=== PATIENT | male | born 1945 | race Caucasian/White ===

== ENCOUNTER 2023-05-03 19:14 | Inpatient (IN) | payer MEDICARE ==
[~2023-05-03] VITALS: Ht 177.8 cm; Wt 77.0 kg
[2023-05-03 19:44] LABS: SARS-CoV-2, RNA, NAAT NEGATIVE SARS CoV-2 (NEGATIVE)
[2023-05-03 20:16] LABS: APPEARANCE,URINE CLEAR (CLEAR); BILIRUBIN,URINE NEGATIVE (NEGATIVE); COLOR,URINE YELLOW (YELLOW); GLUCOSE, URINE (UA) NEGATIVE (NEGATIVE); KETONES,URINE 60 mg/dL (NEGATIVE); LEUKOCYTE ESTERASE ,URINE NEGATIVE Leu/uL (NEGATIVE); NITRATE,URINE NEGATIVE (NEGATIVE); OCCULT BLOOD,URINE SMALL (NEGATIVE); PROTEIN,URINE 30 mg/dL (NEGATIVE); UROBILINOGEN,URINE 0.2 mg/dL (0.2-1.0)
[2023-05-03 20:17] LABS: ADD UA MICROSCOPIC YES
[2023-05-03 20:19] LABS: MUCUS,URINE RARE LPF (None Seen); SQUAMOUS EPITHELIAL CELL,UR RARE /HPF (0-2)
[2023-05-03 20:25] LABS: INFLUENZA TYPE A Negative For Type A (NEGATIVE); INFLUENZA TYPE B Negative For Type B (NEGATIVE)
[2023-05-03] MEDS ORDERED: 0.9%NACL 1000ML 2,000 ML IV ONE (22:00)
[2023-05-03 22:19] LABS: BASOPHILS # (AUTO) 0.02 K/uL (0.00-0.20); BASOPHILS % (AUTO) 0.2 % (0.0-5.0); EOSINOPHILS # (AUTO) 0.01 K/uL (0.00-0.70); EOSINOPHILS % (AUTO) 0.1 % (0.0-8.0); HEMATOCRIT 34.7 % (42-54); IMMATURE GRANULOCYTE ABSOLUTE 0.08 K/uL (0-1); LYMPHOCYTES # (AUTO) 0.7 K/uL (1.0-4.8); LYMPHOCYTES % (AUTO) 6.9 % (21.0-51.0); MEAN CORPUSCULAR HEMOGLOBIN 29.8 pg (27.0-33.0); MEAN CORPUSCULAR HGB CONC 35.2 g/dL (32.0-36.0); MEAN CORPUSCULAR VOLUME 84.6 fL (79-99); MONOCYTES # (AUTO) 0.3 K/uL (0.1-1.0); MONOCYTES % (AUTO) 2.6 % (3.0-13.0); NEUTROPHILS # (AUTO) 8.9 K/uL (1.8-7.7); NEUTROPHILS % (AUTO) 89.4 % (40.0-77.0); PLATELET COUNT (AUTO) 131 K/uL (130-400); RED CELL DISTRIBUTION WIDTH 12.5 % (11.0-15.5)
[2023-05-03 22:38] LABS: CREATININE 1.2 mg/dL (0.5-1.5)
[2023-05-03 22:45] LABS: ALBUMIN 2.3 g/dL (3.5-5.0); BILIRUBIN,TOTAL 1.1 mg/dL (0.2-1.0); TOTAL PROTEIN, SERUM 5.7 g/dL (6.0-8.3)
[2023-05-03] MEDS ORDERED: IOHEXOL 350 MG/ML 100ML INFUS..BTL IV ONE (23:00)
[2023-05-04] MEDS ORDERED: PANTOPRAZOLE 40 MG/VIAL IVP ONE (00:30)
[2023-05-04] MEDS ORDERED: ONDANSETRON 4MG INJ IV PRN (02:00)
[2023-05-04] MEDS ORDERED: MAGNESIUM 2GM PREMIX 50ML 50 ML IV PRN (02:00)
[2023-05-04] MEDS ORDERED: ACETAMINOPHEN 325 MG TAB PO PRN (02:00)
[2023-05-04] MEDS ORDERED: POTASSIUM CHLORIDE 20MEQ/100ML 100 ML IV PRN (02:00)
[2023-05-04] MEDS: 0.9%NACL 1000ML 1,000 ML IV SCH ×2 (03:52→15:20)
[2023-05-04] MEDS: PANTOPRAZOLE 40 MG/VIAL IVP SCH ×2 (08:11→20:20)
[2023-05-04 09:57] LABS: INR 1.06 (0.85-1.15); PROTHROMBIN TIME 12.3 SEC (9.6-11.6)
[2023-05-04 09:58] LABS: PARTIAL THROMBOPLASTIN TIME 31.3 SEC (26.3-35.5)
[2023-05-04 10:04] LABS: BASOPHILS # (AUTO) 0.03 K/uL (0.00-0.20); BASOPHILS % (AUTO) 0.2 % (0.0-5.0); EOSINOPHILS # (AUTO) 0.02 K/uL (0.00-0.70); EOSINOPHILS % (AUTO) 0.2 % (0.0-8.0); HEMATOCRIT 32.6 % (42-54); IMMATURE GRANULOCYTE ABSOLUTE 0.12 K/uL (0-1); LYMPHOCYTES # (AUTO) 0.6 K/uL (1.0-4.8); LYMPHOCYTES % (AUTO) 4.8 % (21.0-51.0); MEAN CORPUSCULAR HEMOGLOBIN 30.2 pg (27.0-33.0); MEAN CORPUSCULAR HGB CONC 35.9 g/dL (32.0-36.0); MEAN CORPUSCULAR VOLUME 84.2 fL (79-99); MONOCYTES # (AUTO) 0.3 K/uL (0.1-1.0); MONOCYTES % (AUTO) 2.4 % (3.0-13.0); NEUTROPHILS # (AUTO) 11.2 K/uL (1.8-7.7); NEUTROPHILS % (AUTO) 91.4 % (40.0-77.0); PLATELET COUNT (AUTO) 123 K/uL (130-400); RED BLOOD CELL COUNT(AUTO) 3.87 MIL/uL (4.50-6.20); RED CELL DISTRIBUTION WIDTH 12.7 % (11.0-15.5); WHITE BLOOD COUNT (AUTO) 12.2 K/uL (4.8-10.8)
[2023-05-04 13:18] LABS: ALBUMIN 2.1 g/dL (3.5-5.0); CREATININE 1.1 mg/dL (0.5-1.5); MAGNESIUM 1.8 mg/dL (1.80-2.40); POTASSIUM 3.8 mmol/L (3.5-5.1); TOTAL PROTEIN, SERUM 5.4 g/dL (6.0-8.3)
[2023-05-04 17:30] LABS: HEMATOCRIT 31.6 % (42-54)
[2023-05-04 20:55] VITALS: BP 145/61; PULSE 92; RESP 20
[2023-05-04 21:00] VITALS: O2SAT 97
[2023-05-05] VITALS (8 sets, daily range): BP systolic 111–131; BP diastolic 49–76; PULSE 95–112; RESP 16–22; O2SAT 97
[2023-05-05] MEDS ORDERED: HALOPERIDOL INJ 5 MG/ML VIAL IM SCH
[2023-05-05 01:51] LABS: BASOPHILS # (AUTO) 0.02 K/uL (0.00-0.20); BASOPHILS % (AUTO) 0.1 % (0.0-5.0); EOSINOPHILS # (AUTO) 0.04 K/uL (0.00-0.70); EOSINOPHILS % (AUTO) 0.3 % (0.0-8.0); IMMATURE GRANULOCYTE ABSOLUTE 0.32 K/uL (0-1); LYMPHOCYTES # (AUTO) 1.1 K/uL (1.0-4.8); LYMPHOCYTES % (AUTO) 7.7 % (21.0-51.0); MEAN CORPUSCULAR HEMOGLOBIN 30.4 pg (27.0-33.0); MEAN CORPUSCULAR HGB CONC 35.5 g/dL (32.0-36.0); MEAN CORPUSCULAR VOLUME 85.5 fL (79-99); MONOCYTES # (AUTO) 0.4 K/uL (0.1-1.0); MONOCYTES % (AUTO) 2.8 % (3.0-13.0); NEUTROPHILS # (AUTO) 11.9 K/uL (1.8-7.7); NEUTROPHILS % (AUTO) 86.8 % (40.0-77.0); PLATELET COUNT (AUTO) 120 K/uL (130-400); RED BLOOD CELL COUNT(AUTO) 3.39 MIL/uL (4.50-6.20); RED CELL DISTRIBUTION WIDTH 12.6 % (11.0-15.5); WHITE BLOOD COUNT (AUTO) 13.7 K/uL (4.8-10.8)
[2023-05-05 02:04] LABS: ALBUMIN 1.8 g/dL (3.5-5.0); BILIRUBIN,TOTAL 0.9 mg/dL (0.2-1.0); POTASSIUM 3.6 mmol/L (3.5-5.1); TOTAL PROTEIN, SERUM 4.7 g/dL (6.0-8.3)
[2023-05-05 02:59] LABS: LYMPHOCYTES % (MANUAL) 6 % (22-44); SEGMENTED NEUTROPHILS % 94 % (40-70); TOTAL CELLS COUNTED 100
[2023-05-05 03:00] LABS: MAN.DIFF COMMENT-IMPRESSION MANUAL DIFFERENTIAL; PLATELET MORPHOLOGY COMMENT SLIGHTLY DECREASED; WBC MORPHOLOGY NORMAL
[2023-05-05] MEDS ORDERED: KCL 20 MEQ ERTAB PO PRN (03:30)
[2023-05-05] MEDS ORDERED: POTASSIUM CHLORIDE 20MEQ/100ML 100 ML IV PRN (03:30)
[2023-05-05] MEDS: POTASSIUM CHLORIDE 10% ELIXIR 20 MEQ/15 ML UDCUP PO PRN ×3 (03:37→21:12)
[2023-05-05] MEDS: PANTOPRAZOLE 40 MG/VIAL IVP SCH ×2 (09:59→21:12)
[2023-05-05] MEDS: CEFTRIAXONE 1G VIAL IVPB SCH (15:02)
[2023-05-05] MEDS: 0.9%NACL 1000ML 1,000 ML IV SCH (17:57)
[2023-05-05] MEDS: ACETAMINOPHEN 325 MG TAB PO PRN (21:13)
[2023-05-06] VITALS (7 sets, daily range): BP systolic 94–123; BP diastolic 56–74; PULSE 82–97; RESP 16–22; O2SAT 94–96
[2023-05-06] MEDS: PANTOPRAZOLE 40 MG/VIAL IVP SCH ×2 (08:47→21:26)
[2023-05-06] MEDS: 0.9%NACL 1000ML 1,000 ML IV SCH ×2 (08:47→17:22)
[2023-05-06 09:04] LABS: BASOPHILS # (AUTO) 0.05 K/uL (0.00-0.20); BASOPHILS % (AUTO) 0.3 % (0.0-5.0); EOSINOPHILS # (AUTO) 0.12 K/uL (0.00-0.70); EOSINOPHILS % (AUTO) 0.7 % (0.0-8.0); HEMATOCRIT 29.5 % (42-54); IMMATURE GRANULOCYTE ABSOLUTE 0.35 K/uL (0-1); LYMPHOCYTES # (AUTO) 1.8 K/uL (1.0-4.8); LYMPHOCYTES % (AUTO) 11.1 % (21.0-51.0); MEAN CORPUSCULAR HEMOGLOBIN 30.1 pg (27.0-33.0); MEAN CORPUSCULAR HGB CONC 35.6 g/dL (32.0-36.0); MEAN CORPUSCULAR VOLUME 84.5 fL (79-99); MONOCYTES # (AUTO) 0.4 K/uL (0.1-1.0); MONOCYTES % (AUTO) 2.7 % (3.0-13.0); NEUTROPHILS # (AUTO) 13.4 K/uL (1.8-7.7); PLATELET COUNT (AUTO) 98 K/uL (130-400); RED BLOOD CELL COUNT(AUTO) 3.49 MIL/uL (4.50-6.20); RED CELL DISTRIBUTION WIDTH 13.1 % (11.0-15.5); WHITE BLOOD COUNT (AUTO) 16.2 K/uL (4.8-10.8)
[2023-05-06 09:12] LABS: POTASSIUM 3.5 mmol/L (3.5-5.1)
[2023-05-06 09:17] LABS: ALBUMIN 1.5 g/dL (3.5-5.0); BILIRUBIN,TOTAL 0.7 mg/dL (0.2-1.0); TOTAL PROTEIN, SERUM 4.6 g/dL (6.0-8.3)
[2023-05-06] MEDS: POTASSIUM CHLORIDE 10% ELIXIR 20 MEQ/15 ML UDCUP PO PRN ×2 (09:39→14:08)
[2023-05-06 10:30] LABS: BAND NEUTROPHILS % (MANUAL) 22 % (0-2); LYMPHOCYTES % (MANUAL) 8 % (22-44); MONOCYTES % (MANUAL) 2 % (2-9); SEGMENTED NEUTROPHILS % 68 % (40-70); TOTAL CELLS COUNTED 100
[2023-05-06 10:31] LABS: MAN.DIFF COMMENT-IMPRESSION MANUAL DIFFERENTIAL; PLATELET MORPHOLOGY COMMENT DECREASED; WBC MORPHOLOGY CONSISTENT W/DIFF
[2023-05-06] MEDS: CEFTRIAXONE 1G VIAL IVPB SCH (12:56)
[2023-05-07] VITALS (8 sets, daily range): BP systolic 101–122; BP diastolic 64–73; PULSE 66–96; RESP 16–20; O2SAT 95
[2023-05-07] MEDS: PANTOPRAZOLE 40 MG/VIAL IVP SCH ×2 (09:26→21:07)
[2023-05-07] MEDS: CEFTRIAXONE 1G VIAL IVPB SCH (14:50)
[2023-05-07] MEDS: 0.9%NACL 1000ML 1,000 ML IV SCH ×2 (14:51→23:20)
[2023-05-07] MEDS: FLUCONAZOLE 100 MG TAB PO SCH (17:22)
[2023-05-07] MEDS: POTASSIUM CHLORIDE 10% ELIXIR 20 MEQ/15 ML UDCUP PO PRN ×2 (17:22→18:50)
[2023-05-07] MEDS: ACETAMINOPHEN 325 MG TAB PO PRN (18:50)
[2023-05-08 03:56] LABS: BASOPHILS # (AUTO) 0.05 K/uL (0.00-0.20); BASOPHILS % (AUTO) 0.4 % (0.0-5.0); EOSINOPHILS # (AUTO) 0.24 K/uL (0.00-0.70); EOSINOPHILS % (AUTO) 1.8 % (0.0-8.0); HEMATOCRIT 28.4 % (42-54); IMMATURE GRANULOCYTE ABSOLUTE 0.31 K/uL (0-1); LYMPHOCYTES # (AUTO) 4.2 K/uL (1.0-4.8); LYMPHOCYTES % (AUTO) 31.2 % (21.0-51.0); MEAN CORPUSCULAR HEMOGLOBIN 30.1 pg (27.0-33.0); MEAN CORPUSCULAR HGB CONC 35.2 g/dL (32.0-36.0); MEAN CORPUSCULAR VOLUME 85.5 fL (79-99); MONOCYTES # (AUTO) 0.6 K/uL (0.1-1.0); MONOCYTES % (AUTO) 4.1 % (3.0-13.0); NEUTROPHILS # (AUTO) 8.1 K/uL (1.8-7.7); NEUTROPHILS % (AUTO) 60.2 % (40.0-77.0); PLATELET COUNT (AUTO) 173 K/uL (130-400); RED BLOOD CELL COUNT(AUTO) 3.32 MIL/uL (4.50-6.20); RED CELL DISTRIBUTION WIDTH 13.2 % (11.0-15.5); WHITE BLOOD COUNT (AUTO) 13.5 K/uL (4.8-10.8)
[2023-05-08 04:11] LABS: ALBUMIN 1.7 g/dL (3.5-5.0); BILIRUBIN,TOTAL 0.7 mg/dL (0.2-1.0); CREATININE 0.9 mg/dL (0.5-1.5); TOTAL PROTEIN, SERUM 4.9 g/dL (6.0-8.3)
[2023-05-08 04:41] VITALS: BP 116/78; PULSE 84; RESP 18
[2023-05-08 08:00] VITALS: BP 109/66; PULSE 80; RESP 20
[2023-05-08] MEDS ORDERED: FLUCONAZOLE 100 MG TAB PO SCH (09:00)
[2023-05-08] MEDS: FLUCONAZOLE 100 MG TAB PO SCH (09:36)
[2023-05-08] MEDS: PANTOPRAZOLE 40 MG/VIAL IVP SCH (09:37)
[2023-05-08 12:00] VITALS: BP 116/69; PULSE 80; RESP 18
[2023-05-08] MEDS: 0.9%NACL 1000ML 1,000 ML IV SCH (12:40)
[2023-05-08] MEDS: CEFTRIAXONE 1G VIAL IVPB SCH (13:11)
[2023-05-08 16:00] VITALS: BP 131/69; PULSE 74; RESP 18
[2023-05-08] MEDS ORDERED: CEPH500B PO (18:25)
[2023-05-08] MEDS ORDERED: FLUC100T12 PO (18:27)
== END 2023-05-08 20:04 | disposition home or self-care (01) | DRG 640 ==
LOC: EDH 19:14 → EDHIP 05-04 01:50 → 4BH 05-04 21:06
PROVIDERS: ADMIT Hospitalist; ATTEND Hospitalist
DX: E87.1 Hypo-osmolality and hyponatremia (principal); K57.91 Diverticulosis of intestine, part unspecified, without perforation or abscess with bleeding; E44.0 Moderate protein-calorie malnutrition; G72.81 Critical illness myopathy; E87.5 Hyperkalemia; E86.0 Dehydration; B27.00 Gammaherpesviral mononucleosis without complication; D64.9 Anemia, unspecified; J44.9 Chronic obstructive pulmonary disease, unspecified; K44.9 Diaphragmatic hernia without obstruction or gangrene; K80.20 Calculus of gallbladder without cholecystitis without obstruction; T39.395A Adverse effect of other nonsteroidal anti-inflammatory drugs [NSAID], initial encounter; R59.0 Localized enlarged lymph nodes; R62.7 Adult failure to thrive; I10 Essential (primary) hypertension; D63.8 Anemia in other chronic diseases classified elsewhere; K21.9 Gastro-esophageal reflux disease without esophagitis; Z68.24 Body mass index [BMI] 24.0-24.9, adult
CPT/HCPCS: 36415; 70450; 71045; 71260; 74177; 76705; 80053; 81001; 82270; 82550; 83605; 83735; 84145; 84484; 85014; 85018; 85025; 85610; 85651; 85730; 86038; 86140; 86215; 86235; 86431; 87040; 87635; 87804; 93005; C9113; C9803; G0378; J0696; J1630; J3475; Q9967; A4600; G8980-CI; G8983-CI